=== PATIENT | male | born 1940 | race Caucasian/White ===

== ENCOUNTER → 2023-08-06 08:13 | Outpatient (REF) | payer MEDICARE, OTHER, SELFPAY | LOC: HWRCS 08:13 | PROVIDERS: ATTENDING PHYSICIAN Internal Medicine Cardiovascular Disease; FAMILY PHYSICIAN Internal Medicine | DX: Z95.0 Presence of cardiac pacemaker (principal); I10 Essential (primary) hypertension | CPT/HCPCS: 93306 ==

== ENCOUNTER 2023-08-20 06:15 | Day surgery (SDC) | payer MEDICARE, OTHER, SELFPAY ==
[2023-08-04 13:23] VITALS: BMI 31.5
[2023-08-20 06:48] VITALS: BP 150/55
[2023-08-20 06:55] VITALS: BMI 29.3
[2023-08-20 09:15] VITALS: BP 131/61
[2023-08-20 09:30] VITALS: BP 147/57
[2023-08-20 09:45] VITALS: BP 141/65
[2023-08-20 10:02] VITALS: BP 150/57
--- NOTE | 2023-08-20 12:44 | ITS.CL.PACE ---
Billing Department Supervisor - Pacemaker Implant
Pacemaker Implant
Procedure Report:
Date of Procedure: August 20, 2023.
Procedures: Dual chamber pacemaker generator change. Pacemaker pulse generator explantation and pacemaker pulse generator implantation. Pocket revision.
Indication: Pacemaker at [facility] from natural battery depletion. 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
Performing physician: Robinson Garcia MD, [facility]IN [facility].
Implant: Pacemaker Pulse Generator: [employer]; Model# L331; Serial# [id number].
Explanted Pacemaker Pulse Generator (Implanted 07/27/2015): [employer]; Model# L301; Serial# [id number].
Retained Leads (Implanted 07/27/2015):
RA: [employer]: Model# 4470; Serial# [id number].
RV: [employer]; Model# 4457; Serial# [id number].
Technique: A time out was performed. The procedure site was identified. The patient was anesthetized by the anesthesia service. Preoperative cefazolin was administered prior to skin incision. The patient was prepped and draped in the usual fashion.
Local anesthetic was applied to the left prepectoral subcutaneous tissue. A 3 inch incision was made over the pulse generator. The capsule was entered with Bovie cautery. The old pacemaker pulse generator was explanted. No Bovie cautery was applied
to the lead system. The leads were appropriately attached to the new device. The pocket was revised to allow the new device to be inserted and the pocket was irrigated with antibiotic solution. Hemostasis was excellent. The device and leads were
placed in the pocket. The incision was closed in three layers with absorbable suture. Steri-strips and an Aquacel dressing were applied. The estimated blood loss was less than 5 mL. There were no complications. No fluoroscopy.
Lead Analysis:
RA lead: P: 1 mV; Threshold: 0.6 V @ 0.4 ms; Impedance: 385 ohms.
RV lead: R: n/a; Threshold: 0.6 V @ 0.4 ms; Impedance: 339 ohms.
Final Programming: DDDR 60 - 120 bpm.
Conclusion: Uncomplicated [employer] pacemaker change. The pacemaker system is MRI conditional.
Recommendation: Routine post pacemaker care.
cc: Katalina Ortiz MD.
== END 2023-08-20 10:21 | disposition home or self-care (01) ==
LOC: CATH 06:15
PROVIDERS: ATTENDING PHYSICIAN Internal Medicine Cardiovascular Disease; FAMILY PHYSICIAN Internal Medicine
DX: Z45.010 Encounter for checking and testing of cardiac pacemaker pulse generator [battery] (principal); I44.30 Unspecified atrioventricular block; I48.91 Unspecified atrial fibrillation; E78.5 Hyperlipidemia, unspecified; I25.10 Atherosclerotic heart disease of native coronary artery without angina pectoris; Z95.5 Presence of coronary angioplasty implant and graft; I10 Essential (primary) hypertension; I08.2 Rheumatic disorders of both aortic and tricuspid valves; K21.9 Gastro-esophageal reflux disease without esophagitis; G47.33 Obstructive sleep apnea (adult) (pediatric); K44.9 Diaphragmatic hernia without obstruction or gangrene; Z87.19 Personal history of other diseases of the digestive system; K57.90 Diverticulosis of intestine, part unspecified, without perforation or abscess without bleeding; J32.8 Other chronic sinusitis; I73.00 Raynaud's syndrome without gangrene; K58.9 Irritable bowel syndrome, unspecified; Z85.828 Personal history of other malignant neoplasm of skin; Z96.643 Presence of artificial hip joint, bilateral; M19.90 Unspecified osteoarthritis, unspecified site; E66.9 Obesity, unspecified; Z68.31 Body mass index [BMI] 31.0-31.9, adult; Z87.891 Personal history of nicotine dependence; E87.1 Hypo-osmolality and hyponatremia; D64.9 Anemia, unspecified; Z79.82 Long term (current) use of aspirin; Z79.899 Other long term (current) drug therapy
CPT/HCPCS: 33228; 86900; 86901; C1785

== ENCOUNTER → 2023-10-20 11:17 | Outpatient (REF) | payer MEDICARE, OTHER, SELFPAY | LOC: HWRAD 11:17 | PROVIDERS: ATTENDING PHYSICIAN Otolaryngology; FAMILY PHYSICIAN Internal Medicine | DX: J32.2 Chronic ethmoidal sinusitis (principal); J32.1 Chronic frontal sinusitis; J32.0 Chronic maxillary sinusitis | CPT/HCPCS: 70486 ==

== ENCOUNTER → 2023-11-27 09:37 | Outpatient (REF) | payer MEDICARE, OTHER, SELFPAY ==
[2023-11-27 11:26] LABS: % Basophils 1.1 % (0-2); % Eosinophils 4.4 % (0-6); % Immature Granulocytes 0.3 % (0-0.5); % Lymphocytes 22.3 % (20.5-51.1); % Neutrophils 62.9 % (42.2-75.2); Absolute Basophils 0.1 10^3/uL (0-0.2); Absolute Eosinophils 0.3 10^3/uL (0-0.7); Absolute Lymphocytes 1.6 10^3/uL (1.2-3.4); Absolute Monocytes 0.6 10^3/uL (0.1-0.6); Absolute Neutrophils 4.4 10^3/uL (1.4-6.5); Hematocrit 40.2 % (39.0-52.0); Hemoglobin 13.7 g/dL (13.0-18.0); Mean Corp Hgb Conc. 34.1 g/dL (33.0-37.0); Mean Corpuscular Volume 85.2 fL (80.0-94.0); Mean Platelet Volume 8.8 fL (7.4-10.4); Nucleated Red Blood Cells % 0 % (-); Platelet Count 196 10^3/uL (130-400); Red Blood Cell Count 4.72 10^6/uL (4.70-6.10); Red Cell Dist. Width 13.6 % (11.5-14.5)
[2023-11-27 11:58] LABS: Albumin 4.4 g/dl (3.5-5.0); Blood Urea Nitrogen 20 mg/dl (9-20); Calcium 9.3 mg/dl (8.4-10.2); Carbon Dioxide 23 mmol/L (22-30); Chloride 99 mmol/L (98-107); Glucose 85 mg/dl (70-99); Iron 99 ug/dl (49-181); Phosphorus 4.1 mg/dl (2.5-4.5); Potassium 5.2 mmol/L (3.5-5.1); Sodium 134 mmol/L (135-145); eGFR > 60.00
[2023-11-27 12:04] LABS: Vitamin D, 25-OH*** 60.2 ng/mL (30-80)
[2023-11-27 12:07] LABS: Percent Saturation 26 % (20-50); Total Iron Binding Capacity 373 ug/dl (261-462)
[2023-11-27 12:18] LABS: TSH Reflex To Free T4 1.45 uIU/ml (0.47-4.68)
[2023-11-27 12:22] LABS: Ferritin 13.6 ng/ml (17.9-464.0)
[2023-11-27 12:27] LABS: HIV Combo Negative (Negative)
[2023-11-27 12:54] LABS: Folate > 20.0 ng/ml (2.76-20); Vitamin B12 558 pg/ml (239-931)
== END ==
LOC: HWLAB 09:37
PROVIDERS: ATTENDING PHYSICIAN Internal Medicine Gastroenterology; FAMILY PHYSICIAN Internal Medicine; OTHER PHYSICIAN Psychiatry & Neurology Neurology; REFERRING PHYSICIAN Internal Medicine
DX: I10 Essential (primary) hypertension (principal); E78.5 Hyperlipidemia, unspecified; E78.2 Mixed hyperlipidemia; N17.9 Acute kidney failure, unspecified; K21.9 Gastro-esophageal reflux disease without esophagitis; R41.3 Other amnesia; D64.9 Anemia, unspecified
CPT/HCPCS: 36415; 80069; 82306; 82607; 82728; 82746; 83540; 83550; 83921; 84425; 84443; 85025; 86618; 86780; 87389

== ENCOUNTER → 2024-03-14 08:33 | Outpatient (REF) | payer MEDICARE, OTHER, SELFPAY ==
[2024-03-14 11:43] LABS: ALT (SGPT) 21 U/L (0-50); AST (SGOT) 26 U/L (17-59); Albumin 4.2 g/dl (3.5-5.0); Alkaline Phosphatase 38 U/L (38-126); Blood Urea Nitrogen 24 mg/dl (9-20); Calcium 8.8 mg/dl (8.4-10.2); Carbon Dioxide 24 mmol/L (22-30); Chloride 95 mmol/L (98-107); Glucose 87 mg/dl (70-99); HDL Cholesterol 67 mg/dl; LDL Cholesterol, Calculated 63 mg/dl; Phosphorus 4.1 mg/dl (2.5-4.5); Potassium 4.9 mmol/L (3.5-5.1); Sodium 130 mmol/L (135-145); Total Bilirubin 0.4 mg/dl (0.2-1.3); Total Cholesterol 145 mg/dl (50-199); Total Protein 6.9 g/dl (6.3-8.2); Triglyceride 79 mg/dl (10-149); Very Low Density Lipoprotein 15 mg/dl (0-30); eGFR 49.87
[2024-03-14 11:52] LABS: Urine Albumin Negative (Neg - Trace); Urine Bilirubin Negative (Negative); Urine Character Clear (Clear); Urine Color Yellow; Urine Glucose Negative (Negative); Urine Ketone Negative (Negative); Urine Leukocyte Negative (Negative); Urine Nitrite Negative (Negative); Urine Occult Blood Negative (Negative); Urine Urobilinogen Negative (Neg - 1+); Urine pH 6.5 (5.0-9.0)
[2024-03-14 12:43] LABS: Osmolality Urine 544 mOsm/kg (300-900)
[2024-03-14 13:14] LABS: Urine Protein 5 mg/dl; Urine Sodium 78 mmol/L (30-90)
== END ==
LOC: HWLAB 08:33
PROVIDERS: ATTENDING PHYSICIAN Internal Medicine; FAMILY PHYSICIAN Internal Medicine
DX: E87.1 Hypo-osmolality and hyponatremia (principal); E78.5 Hyperlipidemia, unspecified
CPT/HCPCS: 36415; 80053; 80061; 81003; 82570; 83935; 84100; 84156; 84300

== ENCOUNTER → 2024-06-21 08:24 | Outpatient (REF) | payer MEDICARE, OTHER, SELFPAY ==
[2024-06-21 12:02] LABS: % Basophils 1.5 % (0-2); % Eosinophils 8.4 % (0-6); % Immature Granulocytes 0.2 % (0-0.5); % Monocytes 9.8 % (1.7-9.3); % Neutrophils 53.1 % (42.2-75.2); Absolute Basophils 0.1 10^3/uL (0-0.2); Absolute Eosinophils 0.5 10^3/uL (0-0.7); Absolute Lymphocytes 1.6 10^3/uL (1.2-3.4); Absolute Monocytes 0.6 10^3/uL (0.1-0.6); Absolute Neutrophils 3.2 10^3/uL (1.4-6.5); Hematocrit 37.1 % (39.0-52.0); Hemoglobin 12.6 g/dL (13.0-18.0); Mean Corpuscular Hgb 28.8 pg (27.0-31.0); Mean Corpuscular Volume 84.9 fL (80.0-94.0); Mean Platelet Volume 9.3 fL (7.4-10.4); Nucleated Red Blood Cells % 0 % (-); Platelet Count 195 10^3/uL (130-400); Red Blood Cell Count 4.37 10^6/uL (4.70-6.10); Red Cell Dist. Width 14.1 % (11.5-14.5); White Blood Cell Count 5.9 10^3/uL (4.8-10.8)
[2024-06-21 12:54] LABS: Ferritin 12.6 ng/ml (17.9-464.0)
== END ==
LOC: HWLAB 08:24
PROVIDERS: ATTENDING PHYSICIAN Internal Medicine Gastroenterology; FAMILY PHYSICIAN Internal Medicine
DX: D64.9 Anemia, unspecified (principal)
CPT/HCPCS: 36415; 82728; 85025

== ENCOUNTER → 2024-07-06 08:09 | Outpatient (REF) | payer MEDICARE, OTHER, SELFPAY ==
[2024-07-06 10:22] LABS: Albumin 4.4 g/dl (3.5-5.0); Blood Urea Nitrogen 27 mg/dl (9-20); Calcium 9.2 mg/dl (8.4-10.2); Carbon Dioxide 23 mmol/L (22-30); Chloride 102 mmol/L (98-107); Glucose 91 mg/dl (70-99); Phosphorus 4.2 mg/dl (2.5-4.5); Potassium 4.9 mmol/L (3.5-5.1); Sodium 135 mmol/L (135-145); eGFR 54.51
== END ==
LOC: HWLAB 08:09
PROVIDERS: ATTENDING PHYSICIAN Internal Medicine; FAMILY PHYSICIAN Internal Medicine
DX: E87.1 Hypo-osmolality and hyponatremia (principal)
CPT/HCPCS: 36415; 80069

== ENCOUNTER 2024-09-05 08:51 | Emergency (ER) | payer MEDICARE, OTHER, SELFPAY ==
[2024-09-05 08:52] VITALS: BP 163/70
--- NOTE | 2024-09-05 10:43 | ED.GENMED ---
History of Present Illness
General
Chief Complaint: Fall
Source: patient
Time Seen by Provider: 09/05/24 09:12
History of Present Illness
History of Present Illness:
Note:
CHIEF COMPLAINT(S)
Swelling and abrasions after a fall.
HISTORY OF PRESENT ILLNESS
The patient is an 83-year-old male who presented after experiencing a fall yesterday. He reported not being able to completely break his fall as he was tangled in furniture, resulting in landing on a cool deck. The fall resulted in swelling of the
left hand, particularly in the fourth digit, which alarmed him this morning. He did not experience any loss of consciousness at the time of the fall, and he denies current headaches. The patient is taking low-dose aspirin (81 mg), but no blood
thinners. He has some minor abrasions on his left elbow, but there is no significant pain associated with his back or neck. His left shoulder and wrist remain mobile, although he describes a slight soreness without significant tenderness.
PHYSICAL EXAM
- Neurological: Awake, alert, and oriented x3. No focal motor deficits. Cranial nerves are intact.
- Head: Abrasion to the left forehead.
- Upper Extremity: Small abrasion on the left elbow. Normal range of motion in the left shoulder, elbow, and wrist.
- Left Hand: Marked swelling of the fourth digit with slight tenderness at the proximal phalanx. Normal capillary refill observed.
PLAN
Proceed with removal of the ring from the swollen digit using a straight cut technique, followed by possible jeweler repair. Obtain a hand X-ray to rule out fractures in the finger or hand.
DIFFERENTIAL DIAGNOSIS
The Differential Diagnosis includes, in no particular order and is not limited to:
1. Fracture of the finger
2. Contusion of the hand
3. Sprain or strain to the left upper extremity
4. Soft tissue injury
5. Laceration or abrasion-related swelling
6. Hematoma formation
7. Dislocation of finger joints
8. Joint effusion
9. Infection or cellulitis
10. Tendon injury
CARE-UPDATE
09/05/24 - 10:46
The ring was successfully removed, revealing a small avulsion fracture around the joint. Immobilization is recommended for one to two weeks, with a follow-up exam suggested in one week to assess healing and determine if further immobilization is
required. The patient is advised not to remove the splint during routine activities such as showering; it can be temporarily removed and secured with fresh tape if necessary. To reduce swelling, the patient should apply ice as needed. Guidance was
given to contact a recommended hand specialist for timely follow-up.
Disposition:
SUMMARY OF ENCOUNTER
The patient, an 83-year-old male, was seen following a fall that resulted in swelling of the left hand and abrasions to the left elbow and forehead. A marked swelling on the fourth digit of the left hand and a small abrasion on the left elbow were
noted. The fall did not result in loss of consciousness or significant pain in other areas. Physical examination determined slight tenderness at the proximal phalanx. Emergency treatment in the form of ring removal using a straight cut technique was
performed, revealing a small avulsion fracture. A hand X-ray was ordered to rule out fractures in the finger or hand.
PROCEDURES
Removal of the ring from the swollen digit using a straight cut technique.
MEDICATION RECONCILIATION
The patient is taking low-dose aspirin 81 mg.
MEDICAL DECISION MAKING
1. Number & Complexity of Problems:
- Chronic conditions affecting care: Low-dose aspirin use.
- Differential diagnoses considered: Fracture of the finger, contusion, sprain or strain, soft tissue injury, laceration or abrasion-related swelling, hematoma formation, dislocation of finger joints, joint effusion, infection or cellulitis, tendon
injury.
2. Data Reviewed:
- Hand X-ray ordered to assess for possible fractures following ring removal and avulsion fracture discovery.
DISPOSITION
The patient is recommended for outpatient follow-up care. Immobilization of the digit is advised for one to two weeks, with a follow-up exam in one week to evaluate recovery and determine any additional treatment. Referral to a hand specialist was
suggested for ongoing care and monitoring of the injury.
PATIENT EDUCATION AND COUNSELING
The patient was advised on the importance of keeping the splint on during routine activities, including showering, and only removing it briefly if necessary for retaping. Instructions were provided for the application of ice to reduce swelling.
FOLLOW-UP INSTRUCTIONS
The patient was provided with information to contact a hand specialist for ongoing management of the hand injury. A follow-up exam is suggested in one week to assess healing progress and evaluate the need for continued immobilization.
Past History
Past History
ED Past Medical History: CAD (cardiac stents), GERD and Hypercholesterolemia
Social History
Tobacco: Non-smoker
Drug: None
Personal:
Living: with family
Employment: Retired
Family History
Family History: Other (no significant)
Phy Exam
Physical Exam
Physical Exam:
.
Course
Orders/Labs/Results
Orders:
Orders
09/05/24 09:23
Hand, Left 3 View [CR Hand - Left Min 3 Views] Urgent
Comment:
Reason For Exam: fall
Vital Signs
Initial and Last Documented VS:
Initial Vital Signs
Temp Pulse Resp BP Pulse Ox
98.1 F 63 18 163/70 97
09/05/24 08:52 09/05/24 08:52 09/05/24 08:52 09/05/24 08:52 09/05/24 08:52
Last Documented Vital Signs
Temp Pulse Resp BP Pulse Ox
98.1 F 63 18 163/70 97
09/05/24 08:52 09/05/24 08:52 09/05/24 08:52 09/05/24 08:52 09/05/24 10:45
*Pulse Oximetry
SaO2: 97
Oxygen Mode of Delivery: Room air
Patient hypoxic: no
*Critical Care Note
Total Time (30-74mins, 75-104mins- exclusive of procedures): Not Applicable
ED Attending Note
-
Portions of this chart may have been created with voice recognition software.� Occasional wrong word or��sound alike� substitutions may have occurred due to the inherent limitations of voice recognition software.
Discharge Plan
Departure
Patient Disposition: Home (Routine Discharge)
Date of Disposition: 09/05/24
Time of Disposition: 10:43
Patient with high blood pressure during this ER visit?: Yes
Discharge Problem:
Finger fracture, Head injury
Instructions: Head injury in adults, Finger Fracture ED, BLOOD PRESSURE
Prescriptions:
No Action
pantoprazole 40 MG tablet,delayed release (DR/EC)
40 mg PO DAILY
aspirin 81 MG tablet,delayed release (DR/EC)
81 mg PO HS
fexofenadine 180 mg Tablet
180 mg PO DAILY
valsartan 320 mg Tablet
320 mg PO QPM
azelastine 137 mcg (0.1 %) Aerosol,[place]
1 spray INTRANASAL BID
Rx Instructions:
b/l nostrils
fluticasone propionate 50 mcg/actuation [place],Suspension
1 spray INTRANASAL DAILY
Rx Instructions:
b/l nostrils
diltiazem HCl 120 mg Capsule,Extended Release 24hr
120 mg PO DAILY
rosuvastatin 20 MG tablet
20 mg PO HS
cephalexin 500 mg capsule
500 mg PO Q8H Qty: 3 0RF
Referrals:
Katalina Ortiz MD [Family Provider, Internal Medicine]
Donny Duckworth MD [Active, Orthopedics]
Activity Restrictions/Additional Instructions:
Please ice your injury. Return immediately for vomiting, change in mentation, weakness of any kind or any other concerns. Please be sure to see orthopedics in the next 1 to 2 weeks for follow-up and reevaluation.
Interventions
Interventions:
ED-Musculoskeletal Assessment Last Done: 09/05/24 09:54
ED- Neurological Assessment Last Done: 09/05/24 09:54
ED-Skin Assessment Last Done: 09/05/24 09:55
Discharge Date and Time
Print Language: MONGOLIAN
== END 2024-09-05 10:59 | disposition home or self-care (01) ==
LOC: EMR 08:51
PROVIDERS: EMERGENCY PHYSICIAN Emergency Medicine; FAMILY PHYSICIAN Internal Medicine
DX: S62.615A Displaced fracture of proximal phalanx of left ring finger, initial encounter for closed fracture (principal); S00.81XA Abrasion of other part of head, initial encounter; S50.312A Abrasion of left elbow, initial encounter; W19.XXXA Unspecified fall, initial encounter; E78.00 Pure hypercholesterolemia, unspecified; I25.10 Atherosclerotic heart disease of native coronary artery without angina pectoris; Z95.5 Presence of coronary angioplasty implant and graft; Z79.82 Long term (current) use of aspirin
CPT/HCPCS: 29130; 99283; 73130

== ENCOUNTER → 2024-10-31 12:22 | Outpatient (REF) | payer MEDICARE, OTHER, SELFPAY | LOC: REG 12:22 | PROVIDERS: ATTENDING PHYSICIAN Internal Medicine | DX: Z01.818 Encounter for other preprocedural examination (principal); Z95.0 Presence of cardiac pacemaker | CPT/HCPCS: 71046 ==

== ENCOUNTER → 2024-10-31 13:29 | Outpatient (REF) | payer MEDICARE, OTHER, SELFPAY | LOC: MRI 13:29 | PROVIDERS: ATTENDING PHYSICIAN Psychiatry & Neurology Neurology; FAMILY PHYSICIAN Internal Medicine | DX: R41.3 Other amnesia (principal) | CPT/HCPCS: 70551 ==

== ENCOUNTER → 2025-01-11 08:02 | Outpatient (REF) | payer MEDICARE, OTHER, SELFPAY ==
[2025-01-11 13:47] LABS: Albumin 4.0 g/dl (3.5-5.0); Blood Urea Nitrogen 20 mg/dl (9-20); Calcium 8.9 mg/dl (8.4-10.2); Carbon Dioxide 26 mmol/L (22-30); Chloride 97 mmol/L (98-107); Glucose 91 mg/dl (70-99); Potassium 4.9 mmol/L (3.5-5.1); Sodium 130 mmol/L (135-145); eGFR 59.63
== END ==
LOC: HWLAB 08:02
PROVIDERS: ATTENDING PHYSICIAN Internal Medicine; FAMILY PHYSICIAN Internal Medicine
DX: I10 Essential (primary) hypertension (principal)
CPT/HCPCS: 36415; 80069; 82570; 83930; 83935; 84156; 84300

== ENCOUNTER 2025-02-01 09:58 | Emergency (ER) | payer MEDICARE, OTHER, SELFPAY ==
[2025-02-01] VITALS (10 sets, daily range): BP systolic 146–169; BP diastolic 45–73; BMI 29.3
--- NOTE | 2025-02-01 11:02 | ED.GENMED ---
History of Present Illness
<Robinson Sifuentes MD - Last Filed: 02/01/25 16:03>
General
Chief Complaint: Weakness
Source: patient and spouse
Exam Limitations: none
Time Seen by Provider: 02/01/25 10:18
Nursing documentation reviewed up to this point in time: agreed with
History of Present Illness
History of Present Illness:
84-year-old male with a past medical history of hyperlipidemia, hypertension, GERD, CAD status post stent who presents to the emergency department with his for evaluation of myalgias and generalized weakness. Patient's is at bedside and
helps with collateral history�she says that patient has chronically had decline in his cognitive function and memory and patient has been seen by specialist for this in the past. It sounds like confusion and memory has generally been worsening over
the past year. says that in late November he received his flu shot and a few days later he developed cough and the entire month of December he had worsening nonproductive cough without any other notable symptoms. They did go for a vacation on
a cruise ship in December and when they returned home they had issues with their flight requiring them to walk around with heavy bags for a long period of time. When they returned home patient was complaining of soreness in his arms which
attributed to carrying heavy bags recently. This arm soreness has persisted and he has had soreness throughout the rest of his body over the past few weeks since returning from vacation�patient describes being sore in the legs and arms, hands,
back. In addition to generalized soreness he says he feels 'not quite himself.' This morning had some mild chest discomfort. No abdominal pain. No vomiting. He has been eating and drinking although his says that he is on a fluid
restriction due to issues with his sodium. No recent adjustments to his medications.
Past History
<Robinson Sifuentes MD - Last Filed: 02/01/25 16:03>
Past History
ED Past Medical History: CAD (cardiac stents), GERD and Hypercholesterolemia
Social History
Tobacco: Non-smoker
Drug: None
Personal:
Living: with family
Employment: Retired
Family History
Family History: Other (no significant)
Review of Systems
<Robinson Sifuentes MD - Last Filed: 02/01/25 16:03>
Review of Systems
All Other Systems: ROS reviewed and negative except as documented in HPI and ROS
Constitutional: Reports fatigue; Denies fever
EENT: Denies sore throat or runny nose
Respiratory: Reports cough; Denies trouble breathing
Cardiac: Reports chest pain; Denies palpitations
ABD/GI: Denies abdominal pain, nausea, vomiting or diarrhea
: Denies dysuria or flank pain
Musculoskeletal: Reports joint pain, muscle pain, neck pain and back pain
Neurological: Denies dizzy or headache
Phy Exam
<Robinson Sifuentes MD - Last Filed: 02/01/25 16:03>
Physical Exam
Physical Exam:
General: Awake, alert, oriented x3; no acute distress
Head: Normocephalic, atraumatic
Eyes: Conjunctiva normal, sclera anicteric
Throat: Airway intact, handling secretions
Neck: Trachea midline, supple without meningismus
Lungs: Clear to auscultation bilaterally, no wheezing, rales, rhonchi
Heart: Regular rate and rhythm, no murmurs, gallops, or rubs
Abd: Soft, non distended, nontender
Neuro: Cranial nerves intact, speech fluid, motor and sensory intact in the extremities
Skin: Warm and dry
Extremities: No edema in extremities, equal pulses in all extremities
Scores
<Robinson Sifuentes MD - Last Filed: 02/01/25 16:03>
Heart Failure Risk
Heart Failure Risk Score: Not Applicable
Heart Score for Chest Pain Patients
STEMI patient?: Not applicable
Withdrawal Assessment of Alcohol
Withdrawal Assessment Completed?: Not applicable
Course
<Robinson Sifuentes MD - Last Filed: 02/01/25 16:03>
Orders/Labs/Results
Orders:
Orders
02/01/25 10:05
ECG [Electrocardiogram (*1)] Urgent
Reason for Study: Chest Pain
EKG- Treatment ONCE
02/01/25 10:19
Interrogate Pacemaker- Treatment ONCE
02/01/25 10:31
CR Chest - 2 Views Urgent
Comment:
Reason For Exam: persistent cough, weak, confused
02/01/25 10:41
COVID-19 Antigen Urgent
Source: Nasal Swab
CPK [Creatine Phosphokinase] Urgent
CRP [C-Reactive Protein] Urgent
Carboxyhemoglobin Urgent
Complete Blood Count/With Diff Urgent
Comprehensive Metabolic Panel Urgent
Erythrocyte Sed Rate Urgent
Comment: ADD ON
Lyme Progressive Urgent
Comment: ADD ON
Troponin I Urgent
Influenza A+B Rapid Molecular Urgent
NUNO Source: Nasal Swab
Specimen Description:
02/01/25 11:37
Urinalysis Reflex To Culture Urgent
Date Specimen was Collected: 02/01/25
Time Specimen was Collected: 11:03
Urine Microscopic Reflex Cult Urgent
02/01/25 13:28
Troponin I Urgent
02/01/25 15:39
CT Head & Neck Angio W/wo IV Urgent
Comment:
Reason For Exam: acute onset confusion
02/01/25 15:49
Lyme Progressive Urgent
02/01/25 15:59
Add On- LAB Urgent
Tests Added?: ESR, CRP, Lymes
Abnormal Lab Results
02/01/25 02/01/25
10:41 11:37
RBC 4.57 L 10^6/uL
(4.70-6.10)
Hgb 12.9 L g/dL
(13.0-18.0)
MCHC 32.8 L g/dL
(33.0-37.0)
Abs Immat Gran (auto) 0.1 H 10^3/uL
(0-0.05)
Absolute Neuts (auto) 7.3 H 10^3/uL
(1.4-6.5)
Absolute Monos (auto) 0.8 H 10^3/uL
(0.1-0.6)
Immature Gran % 0.7 H %
(0-0.5)
Lymphocytes % 13.0 L %
(20.5-51.1)
Sodium 127 L mmol/L
(135-145)
Chloride 97 L mmol/L
(98-107)
BUN 21 H mg/dl
(9-20)
Glucose 146 H mg/dl
(70-99)
C-Reactive Protein 55.90 H mg/L
(0.0-10.00)
Urine Bacteria (Reflex) Few A
(Negative)
Urine Albumin (Reflex) 2+ A
(Neg - Trace)
02/01/25 10:41
02/01/25 10:41
Vital Signs
Initial and Last Documented VS:
Initial Vital Signs
Temp Pulse Resp BP Pulse Ox
98.5 F 68 18 156/69 95
02/01/25 09:59 02/01/25 09:59 02/01/25 09:59 02/01/25 09:59 02/01/25 09:59
Last Documented Vital Signs
Temp Pulse Resp BP Pulse Ox
98 F 80 20 159/57 97
02/01/25 14:51 02/01/25 18:30 02/01/25 18:30 02/01/25 18:00 02/01/25 18:30
<Gladys Pandya, DO - Last Filed: 02/01/25 18:45>
Orders/Labs/Results
Orders:
Orders
02/01/25 10:05
ECG [Electrocardiogram (*1)] Urgent
Reason for Study: Chest Pain
EKG- Treatment ONCE
02/01/25 10:19
Interrogate Pacemaker- Treatment ONCE
02/01/25 10:31
CR Chest - 2 Views Urgent
Comment:
Reason For Exam: persistent cough, weak, confused
02/01/25 10:41
COVID-19 Antigen Urgent
Source: Nasal Swab
CPK [Creatine Phosphokinase] Urgent
CRP [C-Reactive Protein] Urgent
Carboxyhemoglobin Urgent
Complete Blood Count/With Diff Urgent
Comprehensive Metabolic Panel Urgent
Erythrocyte Sed Rate Urgent
Comment: ADD ON
Lyme Progressive Urgent
Comment: ADD ON
Troponin I Urgent
Influenza A+B Rapid Molecular Urgent
NUNO Source: Nasal Swab
Specimen Description:
02/01/25 11:37
Urinalysis Reflex To Culture Urgent
Date Specimen was Collected: 02/01/25
Time Specimen was Collected: 11:03
Urine Microscopic Reflex Cult Urgent
02/01/25 13:28
Troponin I Urgent
02/01/25 15:39
CT Head & Neck Angio W/wo IV Urgent
Comment:
Reason For Exam: acute onset confusion
02/01/25 15:49
Lyme Progressive Urgent
02/01/25 15:59
Add On- LAB Urgent
Tests Added?: ESR, CRP, Lymes
Abnormal Lab Results
02/01/25 02/01/25
10:41 11:37
RBC 4.57 L 10^6/uL
(4.70-6.10)
Hgb 12.9 L g/dL
(13.0-18.0)
MCHC 32.8 L g/dL
(33.0-37.0)
Abs Immat Gran (auto) 0.1 H 10^3/uL
(0-0.05)
Absolute Neuts (auto) 7.3 H 10^3/uL
(1.4-6.5)
Absolute Monos (auto) 0.8 H 10^3/uL
(0.1-0.6)
Immature Gran % 0.7 H %
(0-0.5)
Lymphocytes % 13.0 L %
(20.5-51.1)
Sodium 127 L mmol/L
(135-145)
Chloride 97 L mmol/L
(98-107)
BUN 21 H mg/dl
(9-20)
Glucose 146 H mg/dl
(70-99)
C-Reactive Protein 55.90 H mg/L
(0.0-10.00)
Urine Bacteria (Reflex) Few A
(Negative)
Urine Albumin (Reflex) 2+ A
(Neg - Trace)
02/01/25 10:41
02/01/25 10:41
Vital Signs
Initial and Last Documented VS:
Initial Vital Signs
Temp Pulse Resp BP Pulse Ox
98.5 F 68 18 156/69 95
02/01/25 09:59 02/01/25 09:59 02/01/25 09:59 02/01/25 09:59 02/01/25 09:59
Last Documented Vital Signs
Temp Pulse Resp BP Pulse Ox
98 F 80 20 159/57 97
02/01/25 14:51 02/01/25 18:30 02/01/25 18:30 02/01/25 18:00 02/01/25 18:30
<Robinson Sifuentes MD - Last Filed: 02/01/25 16:03>
MDM/Problems Addressed
Differential Diagnosis Includes:
Generalized weakness, myalgias: Dehydration, electrolyte abnormality, anemia, deconditioning, osteoarthritis; he has had chronic cough and pneumonia should be considered as well
MDM/Problems Addressed:
84-year-old male presents to the ER with progressive myalgias, fatigue, acute on chronic confusion/memory issues and persistent cough for over a month. Hypertensive but otherwise normal vitals. Physical exam as noted. EKG shows a paced rhythm.
Will interrogate device. Will check labs including a CBC and a CMP, CPK. Reports that he had some transient chest discomfort this morning will check troponin levels. COVID and flu swabs. Will monitor and reassess after the above.
Labs reviewed: CBC shows marginal anemia 12.9 unlikely of acute clinical significance. He has hyponatremia with a sodium of 127 not significantly changed from his prior values. Troponins undetectable x 2. CPK normal. Urinalysis bland. COVID and
flu negative. Chest x-ray shows no pneumonia.
Clinical reassessment patient remains stable. His is still at bedside as well as his daughter. They expressed concerns more so about confusion than anything�although there has been some chronic confusion for which she was seen previously it
sounds like this morning he had trouble collecting his thoughts for some period of time which is very unusual for him. His and daughter are very concerned that this could be a stroke. Certainly he has no signs of an acute stroke and symptoms
have been ongoing for days. His daughter is apparently an ICU nurse and is requesting imaging of the head and neck given his history�will proceed with CT head and neck concern for possible TIA this morning.
Discussed case with neurology�if CTA head and neck normal they can follow-up with patient this week in the office.
Chronic conditions affecting care:
CAD
<Robinson Sifuentes MD - Last Filed: 02/01/25 16:03>
*Radiology
Radiology exam reviewed: preliminary read by ED provider
*Pulse Oximetry
SaO2: 99
Oxygen Mode of Delivery: Room air
Patient hypoxic: no (99%)
*EKG
Interpreted by ED Provider?: Yes
Heart Rate: 65
Rate: normal
Rhythm: ventricular paced
*Critical Care Note
Total Time (30-74mins, 75-104mins- exclusive of procedures): Not Applicable
Data Reviewed
Review of Other/Old Records Reveals: Labs and Records
Source: patient, records and spouse
<Gladys Pandya DO - Last Filed: 02/01/25 18:45>
Update Note
Update Note:
Attending signout note (Gladys Pandya DO)
17:00 -received signout for 84-year-old male who presented to the ER for progressive fatigue, with acute on chronic confusion and memory issues which have been ongoing for the past month. Mild hypertension in the ER, however otherwise
hemodynamically stable. Regarding patient's confusion, has been following outpatient with neurology in [place]. However patient's daughter who is a nurse expresses concerns about his increasing confusion. No focal neurologic deficits appreciated
on exam. Patient had extensive workup completed in the ER. Labs significant for mild hyponatremia, which patient has had in the past, unlikely to be source of ongoing confusion. Reassuring CBC, normal troponin x 2. Normal CPK. Viral swabs
negative. At time of signout, plan for CT of the brain including CT angio. Case had been preliminarily discussed with neurology, noted that if CTA within normal limits, follow-up this week in the office. Pending CT
18:45 - CT is negative and results were discussed with family and patient at bedside. CRP had been sent with patient reporting diffuse myalgias. CRP is elevated. Lyme test also sent. Did discuss possibly preemptively treating patient with
doxycycline, however he has a rheumatology appointment set up on Thursday. They would like to wait for results. Feel this is reasonable. Patient denies any specific joint of discomfort. At this time, there does not appear to be an acute nature to
patient's symptoms. Remains hemodynamically stable and feel stable for discharge with close and will follow-up with Dr. Rodas in office. Family in agreement with plan. Return precautions discussed and patient and family verbalized understanding
ED Attending Note
<Robinson Sifuentes MD - Last Filed: 02/01/25 16:03>
-
Portions of this chart may have been created with voice recognition software.� Occasional wrong word or��sound alike� substitutions may have occurred due to the inherent limitations of voice recognition software.
Discharge Plan
Departure
Patient with high blood pressure during this ER visit?: Yes
Discharge Problem:
Chest pain, Confusion
Instructions: Delirium (confusion), Chest pain (DC)
Prescriptions:
No Action
pantoprazole 40 MG tablet,delayed release (DR/EC)
40 mg PO DAILY
aspirin 81 MG tablet,delayed release (DR/EC)
81 mg PO HS
fexofenadine 180 mg Tablet
180 mg PO DAILY
valsartan 320 mg Tablet
320 mg PO QPM
azelastine 137 mcg (0.1 %) Aerosol,[place]
1 spray INTRANASAL BID
Rx Instructions:
b/l nostrils
fluticasone propionate 50 mcg/actuation [place],Suspension
1 spray INTRANASAL DAILY
Rx Instructions:
b/l nostrils
diltiazem HCl 120 mg Capsule,Extended Release 24hr
120 mg PO DAILY
rosuvastatin 20 MG tablet
20 mg PO HS
cephalexin 500 mg capsule
500 mg PO Q8H Qty: 3 0RF
Referrals:
Katalina Ortiz MD [Family Provider, Internal Medicine] - Call in 1-3 days for appt
Janes Bartholomew MD [Non-Admitting Privileges, Neurology] - Call in 1-3 days for appt
Activity Restrictions/Additional Instructions:
Thank you for visiting the Emergency Department at [facility].
1. Please schedule a follow up appointment as directed. Call first thing tomorrow morning to make an appointment.
2. If indicated, please take your medications as instructed and indicated on discharge paperwork.
3. If any of your symptoms do not improve, or persist, or become more severe within 6-12 hours, please return to the emergency department for further care.
4. Please return to the emergency department if you develop a headache, neck pain/stiffness, fever greater than 100.4F, chest pain, shortness of breath, persistent nausea, vomiting, slurred speech, difficulty walking, numbness/tingling, weakness,
signs of infection or any other symptoms that are worrisome to you.
Please call [phone] if you have any questions.
Interventions
Interventions:
*Risk Screen - Suicide Last Done: 02/01/25 09:59
*General Assessment Last Done: 02/01/25 10:36
*Neglect/Abuse Screening Last Done: 02/01/25 10:36
*ED- Fall Risk Assessment Last Done: 02/01/25 10:36
*ED COVID-19 Vaccine History Last Done: 02/01/25 10:36
*ED Influenza Vaccine History Last Done: 02/01/25 10:36
ED- Cardiac Assessment Last Done: 02/01/25 10:36
ED- Neurological Assessment Last Done: 02/01/25 10:36
ED- Pulmonary Assessment Last Done: 02/01/25 10:36
Discharge Date and Time
Print Language: [place] CITIZ[place]
[2025-02-01 11:12] LABS: Hematocrit 39.3 % (39.0-52.0); Hemoglobin 12.9 g/dL (13.0-18.0); Mean Corp Hgb Conc. 32.8 g/dL (33.0-37.0); Mean Corpuscular Volume 86.0 fL (80.0-94.0); Nucleated Red Blood Cells % 0 % (-); Platelet Count 276 10^3/uL (130-400); Red Cell Dist. Width 12.8 % (11.5-14.5)
[2025-02-01 11:13] LABS: Carboxyhemoglobin 2.6 %
[2025-02-01 11:28] LABS: ALT (SGPT) 14 U/L (0-50); AST (SGOT) 18 U/L (17-59); Albumin 4.0 g/dl (3.5-5.0); Alkaline Phosphatase 51 U/L (38-126); Blood Urea Nitrogen 21 mg/dl (9-20); Calcium 9.2 mg/dl (8.4-10.2); Carbon Dioxide 25 mmol/L (22-30); Chloride 97 mmol/L (98-107); Estimated Creatinine Clearance 43 ml/min; Glucose 146 mg/dl (70-99); Potassium 4.3 mmol/L (3.5-5.1); Sodium 127 mmol/L (135-145); Total Protein 7.1 g/dl (6.3-8.2); eGFR > 60.00
[2025-02-01 11:33] LABS: COVID-19 Antigen Negative (Negative)
[2025-02-01 11:38] LABS: Troponin I 0.019 ng/ml
[2025-02-01 11:55] LABS: Urine Character Clear (Clear)
[2025-02-01 12:00] LABS: Urine Red Blood Cell 0-2 /HPF (0-2); Urine Squamous Cell 0-2 /LPF (Few); Urine White Cell 0-2 /HPF (0-5)
[2025-02-01 14:04] LABS: Troponin I 0.016 ng/ml
[2025-02-01 17:41] LABS: C-Reactive Protein 55.90 mg/L (0.0-10.00)
[2025-02-02 10:33] LABS: Lyme Antibody Screen, EIA Negative (Negative)
== END 2025-02-01 19:02 | disposition home or self-care (01) ==
LOC: EMR 09:58
PROVIDERS: EMERGENCY PHYSICIAN Emergency Medicine; FAMILY PHYSICIAN Internal Medicine
DX: R07.9 Chest pain, unspecified (principal); R41.0 Disorientation, unspecified; I25.10 Atherosclerotic heart disease of native coronary artery without angina pectoris; I10 Essential (primary) hypertension; E78.00 Pure hypercholesterolemia, unspecified; K21.9 Gastro-esophageal reflux disease without esophagitis; Z95.0 Presence of cardiac pacemaker; Z95.5 Presence of coronary angioplasty implant and graft
CPT/HCPCS: 99284; 93288; 70496; 70498; 71046; 80053; 81003; 81015; 82375; 82550; 84484; 85025; 85652; 86140; 86618; 87502; 87811; 93005; Q9967

== ENCOUNTER → 2025-02-07 08:50 | Outpatient (REF) | payer MEDICARE, OTHER, SELFPAY ==
[2025-02-07 10:36] LABS: Blood Urea Nitrogen 27 mg/dl (9-20); Calcium 9.0 mg/dl (8.4-10.2); Carbon Dioxide 21 mmol/L (22-30); Glucose 105 mg/dl (70-99); eGFR > 60.00
[2025-02-07 11:16] LABS: Chloride 99 mmol/L (98-107); Potassium 4.8 mmol/L (3.5-5.1); Sodium 127 mmol/L (135-145)
[2025-02-07 16:48] LABS: C-Reactive Protein 44.70 mg/L (0.0-10.00)
== END ==
LOC: REG 08:50
PROVIDERS: ATTENDING PHYSICIAN Internal Medicine
DX: E87.1 Hypo-osmolality and hyponatremia (principal); M79.10 Myalgia, unspecified site; R89.9 Unspecified abnormal finding in specimens from other organs, systems and tissues
CPT/HCPCS: 36415; 80048; 85652; 86140

== ENCOUNTER → 2025-02-10 13:22 | Outpatient (REF) | payer MEDICARE, OTHER, SELFPAY | LOC: HWRAD 13:22 | PROVIDERS: ATTENDING PHYSICIAN Internal Medicine; OTHER PHYSICIAN Internal Medicine Rheumatology | DX: R91.1 Solitary pulmonary nodule (principal); M06.041 Rheumatoid arthritis without rheumatoid factor, right hand; M06.042 Rheumatoid arthritis without rheumatoid factor, left hand; M15.0 Primary generalized (osteo)arthritis; M35.3 Polymyalgia rheumatica | CPT/HCPCS: 71250; 73130 ==

== ENCOUNTER → 2025-02-14 08:40 | Outpatient (REF) | payer MEDICARE, OTHER, SELFPAY ==
[2025-02-14 09:46] LABS: Sodium 130 mmol/L (135-145)
== END ==
LOC: REG 08:40
PROVIDERS: ATTENDING PHYSICIAN Internal Medicine
DX: E87.1 Hypo-osmolality and hyponatremia (principal)
CPT/HCPCS: 36415; 84295

== ENCOUNTER → 2025-02-27 08:22 | Outpatient (REF) | payer MEDICARE, OTHER, SELFPAY ==
[2025-02-27 09:52] LABS: Sodium 131 mmol/L (135-145)
== END ==
LOC: REG 08:22
PROVIDERS: ATTENDING PHYSICIAN Internal Medicine; REFERRING PHYSICIAN Internal Medicine
DX: E87.1 Hypo-osmolality and hyponatremia (principal)
CPT/HCPCS: 36415; 84295